=== PATIENT | female | born 1935 | race Caucasian/White ===

== ENCOUNTER 2016-11-23 11:37 | Emergency (ER) | payer MEDICARE, OTHER ==
--- OUTSIDE RECORDS SUMMARY | 2016-11-23 12:14 | XMS REPORT | Continuity of Care Document ---
:1935 Author Organization [facility] ([facility]) Address [address] [place] [address] Phone [phone] Care Team Providers Name Role Phone Everardo Lei Primary Care Provider [phone] Source Comments This disclosure is being made pursuant to the Care Everywhere program, applicable federal and state laws, and may not contain all informaitonavailable regarding this patient.[facility] ([facility]) Active Allergies and Adverse Reactions Allergen Noted Date Severity Reactions Comments Penicillins 09/02/2015 Rash Current Medications Prescription Sig. Disp. Refills Start Date End Date Status aspirin 81 mg EC Take 81 mg by mouth Active tablet daily. amLODIPine-atorvast Take 1 tablet by Active atin 2.5-10 mg per mouth daily. tablet calcium carbonate Take 1 tablet by Active (500 mg Ca) 1,250 mouth daily. mg -vitamin D 400 unit tablet clonazePAM 0.5 mg Take 0.75 mg by Active tablet mouth at bedtime. tolterodine 4 mg XR Take 4 mg by mouth Active capsule daily. esomeprazole 40 mg Take 40 mg by mouth Active EC capsule daily. omega-3 fish oil w/ Take 1 capsule by Active dha & epa 1,200 mouth daily. (144-216) mg per capsule isosorbide Take 30 mg by mouth Active dinitrate 30 mg 4 times daily. tablet levothyroxine 25 Take 25 mcg by mouth Active mcg tablet every morning before breakfast. lisinopril 10 mg Take 10 mg by mouth Active tablet daily. meclizine 12.5 mg Take 12.5 mg by Active tablet mouth 2 times daily. meloxicam 15 mg Take 15 mg by mouth Active tablet daily. multivitamin tablet Take 1 tablet by Active mouth daily. nabumetone 750 mg Take 750 mg by mouth Active tablet 2 times daily. memantine (NAMENDA Take 28 mg by mouth Active XR) 28 mg XR daily. sprinkle capsule mesalamine Take 500 mg by mouth Active (PENTASA) 500 mg XR 2 times daily with capsule meals. isosorbide Take 30 mg by mouth Active mononitrate 30 mg Every morning. CR tablet traMADol 50 mg Take 50 mg by mouth Active tablet 3 times daily. ranitidine 150 mg Take 300 mg by mouth Active tablet 2 times daily as needed. acetaminophen 325 Take 2 tablets (650 100 tablet 1 09/10/2015 Active mg tablet mg total) by mouth every 4 hours as needed. docusate 100 mg Take 1 capsule (100 100 capsule 1 09/10/2015 Active capsule mg total) by mouth 2 times daily as needed. HEParin (pf) 5000 Inject 0.5 mL (5,000 30 Syringe 1 09/10/2015 Active unit/0.5 mL Units total) injection syringe subcutaneously every 12 hours. sennosides 8.6 mg Take 1-2 tablets 100 tablet 1 09/10/2015 Active tablet (8.6-17.2 mg total) by mouth 2 times daily as needed. 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 loss of consciousness 09/02/2015 Overview: Monitor neuro S/P coronary artery stent placement 09/02/2015 Bleeding risk due to aspirin 09/02/2015 Social History Tobacco Use Types Packs/Day Years Used Date Never Smoker Smokeless Tobacco: Never Used Alcohol Use Drinks/Week oz/Week Comments No Last Filed Vital Signs Vital Sign Reading Time Taken Blood Pressure 159/65 09/10/2015 9:34 AM FINISHED 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 INSPECTOR Pulse 89 09/10/2015 9:34 AM FINISHED CARPET INSPECTOR Temperature 36.8 C (98.2 F) 09/10/2015 9:34 AM FINISHED CARPET INSPECTOR Respiratory Rate 18 09/10/2015 9:34 AM FINISHED CARPET INSPECTOR Height 1.651 m (5' 5") 09/02/2015 9:56 AM FINISHED CARPET INSPECTOR Weight 74 kg (163 lb 2.3 oz) 09/02/2015 9:56 AM FINISHED CARPET INSPECTOR Body Mass Index 27.15 09/02/2015 9:56 AM FINISHED CARPET INSPECTOR Oxygen Saturation 98% 09/10/2015 9:34 AM FINISHED CARPET INSPECTOR Plan of Care Health Maintenance Due Date Last Done Comments Hepatitis B Vaccine (1 of 3 - Primary Series) 1935 Tdap Vaccine 02/07/1946 Lipid Disorder Screening 1955 Td Vaccine 1955 Mammogram 1977 Colonoscopy 1987 Zoster Vaccine 1997 Osteoporosis Screening (DXA Bone Density) 2002 Pneumococcal Vaccine (1 of 2 - PCV13) 2002 Influenza Vaccine: Seasonal (#1) 03/02/2016 Results from Last 3 Months Not on file
--- OUTSIDE RECORDS SUMMARY | 2016-11-23 12:14 | XMS REPORT | Continuity of Care Document ---
:1935 Author Organization [email or web address] [place] [address] Care Team Providers Name Role Phone Provider, None Per Patient Primary Care Provider Unavailable Source Comments This disclosure is being made pursuant to the [employer] program and maynot contain all information available regarding this patient.[email or web address] Active Allergies and Adverse Reactions Allergen Noted Date Severity Reactions Comments Penicillins 06/13/2014 Low Rash Current Medications Be aware that medications may not be up to date as of this document. Alwaysverify current medications with the patient. Prescription Sig. Disp. Refills Start Date End Date Status nabumetone (RELAFEN) 750 Take 750 mg by Active MG tablet mouth 2 (two) times daily. Aspirin (ASPIR-81 PO) Take 81 mg by mouth Active daily. Calcium Carbonate-Vitamin Take by mouth Active D (CALCIUM + D PO) daily. clonazePAM (KLONOPIN) 0.5 Take 0.5 mg by Active MG tablet mouth nightly. dicyclomine (BENTYL) 20 Take 20 mg by Active MG tablet mouth. qd Levothyroxine Sodium 25 Take 25 mcg by Active MCG CAPS mouth daily. Multiple Take by mouth Active Vitamins-Minerals daily. (MULTIVITAMIN PO) simvastatin (ZOCOR) 20 MG Take 20 mg by mouth Active tablet nightly. clopidogrel (PLAVIX) 75 Take 75 mg by mouth Active MG tablet daily. potassium chloride SA Take 20 mEq by Active (K-DUR,KLOR-CON) 20 MEQ mouth 2 (two) times tablet daily. amlodipine-benazepril Take 1 capsule by Active (LOTREL) 2.5-10 MG per mouth daily. capsule lisinopril Take 10 mg by mouth Active (PRINIVIL,ZESTRIL) 10 MG daily. tablet isosorbide mononitrate Take 30 mg by mouth Active (IMDUR) 30 MG 24 hr daily. tablet meclizine (ANTIVERT) 12.5 Take 12.5 mg by Active MG tablet mouth 2 (two) times daily as needed. traMADol (ULTRAM) 50 MG Take 50 mg by mouth Active tablet every 6 (six) hours as needed for Pain. 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 Hallucinations 07/01/2014 Memory disorder 07/01/2014 Most Recent Encounters Date Type Specialty Providers Description 10/29/2016 Data Import Social History Tobacco Use Types Packs/Day Years Used Date Never Smoker Alcohol Use Drinks/Week oz/Week Comments No Alcoholic Drinks/day: ALCOHOL USE: NON-DRINKER Last Filed Vital Signs Vital Sign Reading Time Taken Blood Pressure 130/74 06/13/2014 1:03 PM INSPECTOR POISING Pulse 62 06/13/2014 1:03 PM INSPECTOR POISING Temperature - - Respiratory Rate - - Height 1.651 m (5' 5") 06/13/2014 1:03 PM INSPECTOR POISING Weight 73.483 kg (162 lb) 06/13/2014 1:03 PM INSPECTOR POISING Body Mass Index 26.96 06/13/2014 1:03 PM INSPECTOR POISING Oxygen Saturation - - Plan of Care Health Maintenance Due Date Last Done Comments Tetanus/Pertussis (1 - Tdap) 02/07/1954 Well Adult Visit 1987 Zoster Vaccine 60+ 1997 Bone Density 2002 Pneumococcal Low/Medium Risk 65+ (1 of 2 - PCV13) 2002 Influenza Immunization (#1) 2016 Results from Last 3 Months Not on file
[2016-11-23 12:55] LABS: Anion Gap 10.8 mmol/L (6.8-13.8); BUN/Creatinine Ratio 25.7 (9.0-21.6); Carbon Dioxide 31.7 mmol/L (24-32.6); Estimated Creat Clear 28.3; Hematocrit 35.3 % (37.0-47.0); Hemoglobin 11.3 gm/dL (12.5-16.0); Mean Cell Volume 91.2 fl (78-100); Mean Corpuscular Hemoglobin 29.2 pg (27-31); Mean Platelet Volume 9.4 fl (6.0-9.5); Neutrophil # 4.1 K/mm3 (1.3-6.0); Neutrophil % 75.8 % (42-75.0); Platelet Count 197 K/mm3 (150-450); Potassium 4.5 mmol/L (3.4-4.6); Red Blood Count 3.87 M/mm3 (4.2-5.4); Red Cell Distribution Width 13.7 % (11.5-14.0); White Blood Count 5.5 K/mm3 (4.0-10.5)
[2016-11-23 13:25] LABS: Urine Bilirubin Negative (NEGATIVE); Urine Blood Negative /ul (NEGATIVE); Urine Ketone Negative (NEGATIVE); Urine Protein Negative (NEGATIVE); Urine Specific Gravity 1.015 SP.GR. (1.005-1.010); Urine Urobilinogen Normal (NORMAL)
[2016-11-23 13:34] LABS: Urine Amorphous Sediment Many - 3+ (NONE-FEW); Urine Appearance Cloudy; Urine Bacteria 1+; Urine Color Yellow; Urine Nitrite Positive (NEGATIVE); Urine RBC TRACE /hpf (0-5); Urine Triple Phosphate Crystal Few - 1+ /hpf; Urine WBC TRACE /hpf (0-5)
[2016-11-23 14:31] VITALS: BP 159/82
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
== END 2016-11-23 14:20 | disposition short-term general hospital (02) ==
LOC: ER 11:37
DX: N39.0 Urinary tract infection, site not specified (principal); M79.1 Myalgia; Z85.41 Personal history of malignant neoplasm of cervix uteri; W19.XXXA Unspecified fall, initial encounter; Z91.81 History of falling; Y92.129 Unspecified place in nursing home as the place of occurrence of the external cause

== ENCOUNTER 2017-01-20 14:10 | Emergency (ER) | payer MEDICARE, OTHER ==
--- OUTSIDE RECORDS SUMMARY | 2017-01-20 14:46 | XMS REPORT | Continuity of Care Document ---
:1935 Author Organization [email or web address] [place] [address] Care Team Providers Name Role Phone Provider, None Per Patient Primary Care Provider Unavailable Source Comments This disclosure is being made pursuant to the [employer] 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 Pulse 62 06/13/2014 1:03 PM ACOUSTIC INTELLIGENCE SPECIALIST Temperature - - Respiratory Rate - - Height 1.651 m (5' 5") 06/13/2014 1:03 PM ACOUSTIC INTELLIGENCE SPECIALIST Weight 73.483 kg (162 lb) 06/13/2014 1:03 PM ACOUSTIC INTELLIGENCE SPECIALIST Body Mass Index 26.96 06/13/2014 1:03 PM ACOUSTIC INTELLIGENCE SPECIALIST Oxygen Saturation - - Plan of Care Health Maintenance Due Date Last Done Comments Tetanus/Pertussis (1 - Tdap) 02/07/1954 Well Adult Visit 1987 Zoster Vaccine 60+ 1997 Bone Density 2002 Pneumococcal Low/Medium Risk 65+ (1 of 2 - PCV13) 2002 Influenza Immunization (#1) 2016 Results from Last 3 Months Not on file
[2017-01-20 14:50] LABS: Hematocrit 35.7 % (37.0-47.0); Hemoglobin 11.7 gm/dL (12.5-16.0); Mean Cell Volume 88.8 fl (78-100); Mean Corpuscular Hemoglobin 29.1 pg (27-31); Mean Corpuscular Hgb Conc 32.8 g/dl (32-36); Mean Platelet Volume 9.4 fl (6.0-9.5); Neutrophil # 3.4 K/mm3 (1.3-6.0); Neutrophil % 67.3 % (42-75.0); Platelet Count 236 K/mm3 (150-450); Red Blood Count 4.02 M/mm3 (4.2-5.4); Red Cell Distribution Width 13.2 % (11.5-14.0)
[2017-01-20 15:07] LABS: Albumin * 3.6 gm/dl (3.4-5.0); BUN/Creatinine Ratio 18.7 (9.0-21.6); Bilirubin, Total 0.7 mg/dL (0.0-1.1); Ca. Corrected For Albumin 8.9 mg/dL (8.4-10.2); Calcium * 8.9 mg/dL (7.9-10.9); Potassium 4.2 mmol/L (3.4-4.6); Total Protein 6.9 gm/dL (6.2-8.2)
[2017-01-20 15:11] LABS: Anion Gap 10.8 mmol/L (6.8-13.8); Carbon Dioxide 30.4 mmol/L (24-32.6)
--- NOTE | 2017-01-20 15:25 | ERNOTE ---
Neuro HPI ER Record Presenting Symptoms: weakness Time Seen by Provider: 01/20/17 14:19 Source: patient, family Immunizations: IMMUNIZATION HX Immunizations Up to Date Yes History of Influenza Vaccine Yes Hx Pneumococcal Vaccination Yes Allergies/Adverse Reactions: Allergies Allergy/AdvReac Type Severity Reaction Status Date / Time Penicillins Allergy Verified 01/20/17 14:20 Sulfa (Sulfonamide Allergy Verified 01/20/17 14:20 Antibiotics) Home Medications: HOME MEDICATIONS Aspirin 81 mg PO DAILY 09/02/15 [Last Taken Unknown] Esomeprazole Magnesium [Nexium] 40 mg PO DAILY 09/02/15 [Last Taken Unknown] Levothyroxine Sodium [Tirosint] 25 mcg PO DAILY 09/02/15 [Last Taken Unknown] Lisinopril [Zestril] 20 mg PO DAILY 09/02/15 [Last Taken Unknown] Acetaminophen [Tylenol] 325 mg PO Q4H PRN 11/30/15 [Last Taken Unknown] Docusate Sodium [Colace] 100 mg PO BID PRN 11/30/15 [Last Taken Unknown] Isosorbide Mononitrate [Imdur] 30 mg PO DAILY 11/30/15 [Last Taken Unknown] Memantine HCl [Namenda] 10 mg PO BID 01/02/16 [Last Taken Unknown] Mesalamine [Pentasa] 500 mg PO BID 01/02/16 [Last Taken Unknown] Psyllium Husk (with Sugar) [Metamucil] 1 each PO DAILY 01/02/16 [Last Taken Unknown] Sennosides/Psyllium Husk [Senna Prompt Capsule] 1 - 2 tab PO BID PRN 01/02/16 [ Last Taken Unknown] Cholecalciferol (Vitamin D3) [Vitamin D3] 2,000 unit PO DAILY 02/27/16 [Last Taken Unknown] Cyanocobalamin (Vitamin B-12) [Vitamin B12] 2,500 mcg PO DAILY 02/27/16 [Last Taken Unknown] Ondansetron HCl 4 mg PO DAILY PRN 01/18/17 [Last Taken Unknown] Oxybutynin Chloride [Ditropan Xl] 5 mg PO DAILY 01/18/17 [Last Taken Unknown] Tramadol HCl [Rybix Odt] 50 mg PO DAILY 01/18/17 [Last Taken Unknown] Aspirin/Dipyridamole [Aggrenox 25 mg-200 mg Capsule] 1 each PO BID #60 cpmp.12hr 01/20/17 [Last Taken Unknown] - History of Present Illness Narrative: Patient presents with acute onset of right-sided weakness. She was seen here 2 days earlier for similar symptoms and they resolved. Onset of these symptoms was apparently less than 1 hour ago. Onset: sudden onset Severity: moderate - Character of Deficits New weakness: Present: RUE, RLE Additional Deficits: Present: decrease ability to walk Baseline Cognition: Present: alert, oriented x 4 Baseline Gait: Present: uses a cane/walker Associated Symptoms: Reports: none Prior Treament: Reports: recently seen, treated by physician Review of Systems - Review of Systems Constitutional: Present: See HPI EYE: Present: no symptoms reported ENT: Present: no symptoms reported Respiratory: Present: no symptoms reported Cardiology: Present: no symptoms reported Gastrointestinal/Abdominal: Present: no symptoms reported Genitourinary: Present: no symptoms reported Musculoskeletal: Present: no symptoms reported Skin: Present: no symptoms reported Neurological: Present: See HPI Endocrine: Present: no symptoms reported Hematologic/Lymphatic: Present: no symptoms reported Psych: Present: no symptoms reported - Patient's Past Medical History Patient History - Medical: Anxiety, Dementia, Hypothyroidism Patient History - Cardiac/Respiratory: CVA/Stroke, Hypertension, TIA Patient History - Cancer: Cervical Patient History - Surgical Procedures: Appendectomy, Cholecystectomy Patient History - Other: None LMP (females 10-50): Menopausal - Family History Mother Family History - Medical: Family History - Cardiac/Respiratory: CVA/Stroke Father Family History - Medical: , History Unknown - Social History Living Situations: home Abuse History: No History of abuse Psych History: Hx of Anxiety Smoking Status: Never smoker Alcohol Use: none Drug Use: none - Immunizations Immunizations Up to Date: Yes Hx Pneumococcal Vaccination: Yes History of Influenza Vaccine: Yes Physical Exam - Physical Exam General Appearance: Present: wd/wn, alert, moderate distress Eye Exam: Normal inspection: bilateral, PERRL: bilateral Ears, Nose, Throat: Present: normal ENT inspection, H, normal pharynx Neck: Present: normal inspection, nontender Respiratory: Present: no respiratory distress, normal breath sounds, no accessory muscle use, chest nontender, lungs clear Cardiovascular/Chest: Present: regular rate, rhythm, no murmur, normal peripheral pulses Gastrointestinal/Abdominal: Present: normal bowel sounds, nontender, nondistended, soft, no organomegaly Rectal Exam: Present: deferred Back Exam: Present: normal inspection, normal range of motion Extremity Exam: Present: normal inspection, non-tender, no edema, normal range of motion Neurological Exam: Present: normal mood/affect, disoriented to time Skin Exam: Present: normal color, warm/dry Lymphatic Exam: Present: no adenopathy ED Progress - Results and Orders Patient's Lab Results:: I have reviewed the patient's lab results. - Vital Signs Patient's Vital Signs:: I have reviewed the patient's vital signs. Vital Signs: Vital Signs 01/20/17 01/20/17 01/20/17 14:15 14:33 14:59 Temperature 36.4 C L 36.5 C 36.1 C L Pulse Rate 100 98 89 Respiratory 17 10 L 15 Rate Blood Pressure 199/89 189/90 155/70 O2 Sat by Pulse 98 98 94 Oximetry - EKG EKG: NSR EKG read: Interp. by me - X-Ray X-Ray #1 X-Ray: chest Interpretation: Reviewed by me - CT/Ultrasound CT/Ultrasound Narrative: CT reviewed by me - Progress/Reassessment Chief Complaint: CerebroVascular Accident Progress:: Improved Plan - Plan Plan: Patient is 100% resolved after what appears to be another TIA. She was seen here 2 days before for the same thing and was discharged home then were going to try to change things up some and we will put the patient on Aggrenox to see if that will help work preventatively. Departure Clinical Impression: TIA (transient ischemic attack) Qualifiers: Transient cerebral ischemia type: unspecified Qualified Code(s): G45.9 - Transient cerebral ischemic attack, unspecified - Departure Disposition: Home self-care Condition: Good Instructions: Transient Ischemic Attack, [id number] Referrals: Lakia Martinez DO [Associate] - Prescriptions: Aspirin/Dipyridamole [Aggrenox 25 mg-200 mg Capsule] 1 each PO BID #60 cpmp.12hr
[2017-01-20 15:26] LABS: Prothrombin Time (Patient) 10.1 Seconds (9.4-11.4)
[2017-01-20 15:28] LABS: INR 0.97 INR (0.90-1.10); Partial Thrombolplastin Time 19.7 Seconds (24-32)
[2017-01-20 16:14] VITALS: BP 162/71
== END 2017-01-20 15:40 | disposition home or self-care (01) ==
LOC: ER 14:10
DX: G45.9 Transient cerebral ischemic attack, unspecified (principal)